=== PATIENT | female | born 1985 | race Caucasian/White ===

== ENCOUNTER 2017-04-21 10:45 | Emergency (ER) | payer OTHER ==
[~2017-04-21] VITALS: Ht 170.2 cm; Wt 100.0 kg
[2017-04-21 10:49] VITALS: BP 120/79; PULSE 78; RESP 16; O2SAT 100
--- NOTE | 2017-04-21 11:04 | ED.REPORT ---
HPI-Psychiatric Illness Date of Service Apr 21, 2017 ED Provider: Ricky Hendrix MD Patient is a 31 year old female with a history of Grave's disease and depression who presents to the ED sent from by psychiatrist with suicidal ideation with a plan onset three days ago. Her plan would be to overdose on medications, and her has currently locked all medications up. She denies that she would actually attempt suicide. She is currently taking abilify for her depression, and states that she hasn't felt right since taking it. Her last dose was 3 days ago, and has been intermittently taking it for a month. Patient has had suicidal ideations in the past, but never had a plan before. [place] him on [place]/25. She is willing to be hospitalized because she wants to get better. Per feeder worker power unit operator, patient states that she has had auditory and visual hallucinations. Nursing Notes Stated Complaint: MENTAL HEALTH EVAL Chief Complaint: Psychiatric Complaint Nursing Notes Reviewed: Yes Allergies: Coded Allergies: Sulfa (Sulfonamide Antibiotics) (Verified Allergy, Severe, 04/21/17) Scheduled Aripiprazole (Abilify) 10 Mg Tablet 10 MG PO DAILY Levothyroxine (Levothyroxine) 200 Mcg Tablet 200 MCG PO DAILY General Time Seen by MD: 10:58 Chief Complaint Suicidal ideation Hx Obtained From: Patient, Spouse Arrived By: Walk-in Onset Occurred: 3 days ago Recent Healthcare: Recent doctor visit Similar Sx Previous: Yes Risk-Psychiatric Illness Suicide Risk Stratification RF Statements: Risk factors reviewed Past Medical History Past Medical History Grave's disease Depression Possible bipolar or personality disorder Past Surgical History Thyroid surgery Reports: Smoking History Unknown if Ever Smoker Social History Alcohol Use: Denies alcohol use Drug Use: THC Other Social History: Good social support, Ambulatory Status Independent Review of Systems Psychiatric: Reports: Hallucinations, auditory, Hallucinations, visual, Suicidal ideation, Denies: Homicidal ideation Complete sys rev & neg: except as marked. Physical Exam Initial Vital Signs Vital Signs (First) Date Time Temp Pulse Resp B/P Pulse Ox O2 Delivery O2 Flow Rate FiO2 04/21/17 10:49 36.4 78 16 120/79 100 04/21/17 15:38 Room Air Initial VS: Reviewed Head / Eyes: Atraumatic, Normocephalic Abdomen / GI: Soft, Non-tender Extremities: Vascular intact, Neuro intact, No swelling, No tenderness Skin: Warm, Dry, No cyanosis General/Constitutional: Awake, Alert Neurologic: Oriented X3, Speech NL Psychiatric: Not homicidal Abnormal Thinking / Perception: Positive: Suicidal, with plan Respiratory / Chest: Atraumatic, Breath sounds NL, Breath sounds = bilat, No respiratory distress Cardiovascular: Heart rate NL, Regular rhythm, Heart sounds NL Abdomen: Soft, Non-tender Interpretation & Diagnostics Lab Results Interpretation Result Diagram: 04/21/17 1130 04/21/17 1130 Test 04/21/17 11:30 White Blood Count 5.9th/mm3 (3.8-10.1) Red Blood Count 4.26mil/mm3 (3.90-5.20) Hemoglobin 10.9g/dL (12.0-15.6) Hematocrit 33.9% (35.0-46.0) Mean Corpuscular Volume 79.6fL (81-100) Mean Corpuscular Hemoglobin 25.6pg (27.0-35.0) Mean Corpuscular Hemoglobin Concent 32.2% (32.0-37.0) Red Cell Distribution Width 14.8% (12.3-15.4) Platelet Count 230bil/L (150-400) Neutrophils (%) (Auto) 48.2% (40-74) Lymphocytes (%) (Auto) 36.1% (14-46) Monocytes (%) (Auto) 7.3% (4-12) Eosinophils (%) (Auto) 7.4% (0-5) Basophils (%) (Auto) 0.8% (0-3) Sodium Level 139mEq/L (134-144) Potassium Level 4.2mEq/L (3.5-5.2) Chloride Level 103mEq/L (97-108) Carbon Dioxide Level 27mmol/L (18-29) Blood Urea Nitrogen 10mg/dL (6-20) Creatinine 0.78mg/dL (0.57-1.00) Estimat Glomerular Filtration Rate 123mL/min (>59) Glucose Level 93mg/dL (60-99) Calcium Level 9.1mg/dL (8.5-10.1) Total Bilirubin 0.3mg/dL (0.0-1.2) Aspartate Amino Transf (AST/SGOT) 18U/L (0-50) Alanine Aminotransferase (ALT/SGPT) 17U/L (0-32) Alkaline Phosphatase 82U/L (25-150) Total Protein 7.1g/dL (6.4-8.4) Albumin 4.5g/dL (3.4-5.0) Thyroid Stimulating Hormone (TSH) 23.310uIU/mL (0.450-4.500) Hold Lowery Top Tube Received (Received) Re-Eval/Medical Decision Med Decision/Clinical Course 31-year-old female history of depression presenting with suicidal ideation with no intent. She has thoughts of killing herself with pills but these are locked up and she does not believe she will do this. She does have a history of hypothyroidism and is on levothyroxine. Here her TSH is elevated. She was evaluated by feeder worker power unit operator and there were no beds available for a voluntary psychiatric admission. This was discussed with the patient and she and her decided that they were safe to go home and did not want to wait for bed authorization. I spoke with the patient's physician who agreed with plan to discharge home with return precautions and plans to follow up with primary doctor tomorrow. We will increase her levothyroxine from 175 to 200 with follow-up primary doctor. Preauthorization form was sent by her feeder worker power unit operator for voluntary psychiatric admission. Return precautions given. Patient reports she is not intent to hurt herself and she does feel safe to be discharged home. agrees and agrees to keep the patient safe. Discharge & Departure Shift Change Sign-Out Patient Care Transferred: Yes Discussed Complaint(s): Yes Additonal Information: Transferred to Dr. Velasco at 1800 Impression: Primary Impression: Suicidal ideation Additional Impressions: Depression Depression Type: unspecified Qualified Code: F32.9 - Major depressive disorder, single episode, unspecified Hypothyroidism Discharge Condition All VS Reviewed: Yes Condition: Stable Additional Instructions: Your thyroid is low. I recommended increasing to 200 g daily and following up with her primary doctor. Review have opted to follow-up with the resources provided by the feeder worker power unit operator as an outpatient. You agreed that you do not have any plans of hurting yourself this time. Please return immediately if any thoughts of hurting yourself or others. Please follow-up with your psychiatrist and resources provided by the feeder worker power unit operator tomorrow. Referrals: BRITANY ALEXANDRE MD Care Transferred at: 18:00 Scribe Attestation Portions of this note were transcribed by Ida Andrew. I, Dr. Hendrix personally performed the history, physical exam and medical decision-making; I reviewed and confirmed the accuracy of the information in the transcribed note. copies to: BRITANY ALEXANDRE MD, Ben M MD Apr 21, 2017 11:04 Ida Andrew Apr 21, 2017 11:27
[2017-04-21 11:46] LABS: BASOPHILS % (AUTO) 0.8 % (0-3); EOSINOPHILS % (AUTO) 7.4 % (0-5); MONOCYTES % (AUTO) 7.3 % (4-12); Mean Corpuscular Hemoglobin 25.6 pg (27.0-35.0); Mean Corpuscular Volume 79.6 fL (81-100); NEUTROPHILS % (AUTO) 48.2 % (40-74); Platelet Count 230 bil/L (150-400)
[2017-04-21 15:38] VITALS: BP 118/8; PULSE 96; RESP 18; O2SAT 100
[2017-04-21] MEDS ORDERED: LEVO200T6 PO (18:51)
[2017-04-21 19:40] VITALS: PULSE 105; RESP 16; O2SAT 97
--- NOTE | 2017-04-21 20:10 | NUR ---
4pm 04/21/17 Mental Health Evaluation Izzy Dewey is a 31 yo female BIB spouse, Juan M, by car to [facility] after being seen and deferred by her PCP, Dr. Alexandre, at [place] for [facility]pt psychiatric services due to active suicidal ideation w/ plan to OD on her Rx. Per chart review and VOA pt has no MH Hx. Per pt has has had depression and self-harm Hx since she was a teen. Pt reports one inpt psych stay at [facility] in 2014 for depression and being overwhelmed. Pt endorses suicidal ideation w/ plan to OD on her Rx. MSE: Pt was assessed in exam room #B w/ spouse Juan M present. Pt was A&Ox4, logical, linear, engaged, endorsing SI w/ plan, denies HI, reports auditory and visual hallucinations i.e. seeing creatures that look like gremlins and I hear what sounds like two people talking on the radio, but they dont tell me to do anything. Pt was engaged, slightly unkempt, dysphoric, tearful, appeared forthright in her reporting, cooperative, and maintained eye contact. Pt reported that when she was a teen that she had thoughts of suicide, but never attempted it. Pt still has yet to attempt suicide, but has developed a plan to OD on her Rx. Pt reports being put on Abilify, but that is has not been working. No medications I have ever taken have helped. Pts spouse reports, She seems to have been worse since she started taken them. She has no gotten any better. Pt also reports she has difficulty sleeping because, sometimes I am afraid I am going to hurt my children. Pt clarified she has never planned to hurt her children, or hurt her children. Pt has been w/ her spouse Juan M for 6 years and they have twins Jesse & Rehan, both 5yo, who are in preschool at [employer] on the [place]. She also cares for a step-son named Tim 11yo who goes [employer]. 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 Pt reports worsening depression, persistent suicidal ideation w/ plan, has tried counseling, and has been taking Abilify, which she reports is not alleviating her current Sx and her spouse confirms that. Pt adds she feels hopeless, has been having hallucinations, and feels afraid she may harm her children, but denies any plans to harm them, or ever having harmed them. Dx: F33.3 Major Depressive D/O w/ psychotic features. Disposition: Two hours were spent attempting pre-auth w/ , which is managed by [facility], to no avail. No one was able to provide pre-auth for a voluntary stay. It can only be achieved by going to [email or web address] and downloading a provider form requesting pre-auth on behalf of pt. Once filled out it needs to be faxed to either [phone], or [phone]. It may be granted in eight hours, or as long as 72 hours. [facility] freelance court reporter also said that, you might have to call them to find out if pre-auth was granted, or you might a fax confirming it. [facility], which was where the pt was originally referred, reported they would hold the bed for tonight. Day staff were made aware of possible pre-auth and acceptance. Pt went home w/ spouse to monitor. Pt reported to staff she has no suicide attempts and feels safe enough to go home for now w/ hopes she may be accepted after pre-auth is attained. Healthcare team was consulted and in complete agreement w/ plan. JOZEF TranSW
[2017-04-22] MEDS ORDERED: ARIP10TA14 PO (17:12)
== END 2017-04-21 19:41 | disposition home or self-care (01) ==
LOC: SED 10:45
DX: F32.9 Major depressive disorder, single episode, unspecified (principal); E03.9 Hypothyroidism, unspecified; R45.851 Suicidal ideations; Z88.2 Allergy status to sulfonamides

== ENCOUNTER 2017-04-22 10:12 | Inpatient (IN) | payer OTHER ==
[~2017-04-22] VITALS: Ht 170.2 cm; Wt 98.0 kg
[~2017-04-22 10:12] MED LIST: LEVO200T6 PO
[2017-04-22 10:24] VITALS: BP 112/74; PULSE 98; RESP 16; O2SAT 99
--- NOTE | 2017-04-22 12:13 | ED.REPORT ---
HPI-Psychiatric Illness Date of Service Apr 22, 2017 ED Provider: Stevie Baldwin MD Patient is a 31 year old female with a hx of Graves disease, depression, and possible bipolar/personality disorder who presents to the ED complaining of suicidal ideation with a plan to OD on pills. Pt reports her depression has been this severe on and off for several months. Pt also reports auditory and visualize hallucinations. She was seen last night for the same symptoms and per spouse, she was actively searching for pills last night at home after being discharged. She denies homicidal ideation, fever, headache, nausea, vomiting, diarrhea, abdominal pain, recent injuries, or any other symptoms. Pt reports her abilify "hasn't been working" and she stopped taking it consistently because she felt it exacerbated her depression. She was prescribed it 2 months ago and per spouse, she has been "going downhill since." She has been taking it consistently for the past 2 weeks as instructed by her doctor and believes this is why she is so suicidal. Pt occasionally takes Paxil. She also takes a thyroid medication and her dose was increased last night. She took 1mg Ativan at 0700 this morning. Pt reports using marijuana but denies other drug or alcohol use. She had a psychiatric admission at [facility] 2 years ago. Nursing Notes Stated Complaint: MENTAL HEALTH Chief Complaint: Psychiatric Complaint Nursing Notes Reviewed: Yes Allergies: Coded Allergies: Sulfa (Sulfonamide Antibiotics) (Verified Allergy, Severe, 04/21/17) Scheduled Levothyroxine (Levothyroxine) 200 Mcg Tablet 200 MCG PO DAILY General Time Seen by MD: 12:04 Chief Complaint Suicidal ideation Hx Obtained From: Patient, Spouse Arrived By: Walk-in Onset Occurred: More than a week ago... Symptom Duration: Intermittent Severity: Current: No pain currently Severity: Maximum: No pain Immunizations: Unknown Recent Healthcare: Recent doctor visit Similar Sx Previous: Yes Risk-Psychiatric Illness Suicide Risk Stratification Suicide Risk Factors - Adult: : Prior psych admission: Substance abuseNo: Alcohol use, Previous attempt RF Statements: Risk factors reviewed Past Medical History Past Medical History Grave's disease Depression Possible bipolar or personality disorder Past Surgical History Thyroid surgery Reports: Smoking History Unknown if Ever Smoker Social History Alcohol Use: Denies alcohol use Drug Use: THC Other Social History: Good social support, Ambulatory Status Independent Review of Systems Review of Systems Note: -recent injuries Constitutional: Denies: Fever GI: Denies: Abdominal pain, Diarrhea, Nausea, Vomiting Neurologic: Denies: Headache Psychiatric: Reports: Depression, Hallucinations, auditory, Hallucinations, visual, Suicidal ideation, Denies: Homicidal ideation Complete sys rev & neg: except as marked. Physical Exam Initial Vital Signs Vital Signs (First) Date Time Temp Pulse Resp B/P Pulse Ox O2 Delivery O2 Flow Rate FiO2 04/22/17 10:24 36.3 98 16 112/74 99 Room Air Initial VS: Reviewed, Vital signs normal Head / Eyes: Atraumatic, Normocephalic Neck: Full range of motion Respiratory: Breath sounds normal, Clear to auscultation, No respiratory distress Cardiovascular: Regular rate & rhythm, Heart sounds normal, Intact distal pulses Abdomen / GI: Soft, Non-tender Skin: Warm, Dry General/Constitutional: Awake, Alert Neurologic: Oriented X3, Speech NL Psychiatric: Not homicidal Abnormal Mood/Affect: Positive: Depressed Abnormal Thinking / Perception: Positive: Suicidal, with plan Interpretation & Diagnostics Lab Results Interpretation Test 04/22/17 12:00 Hold Urine Received (Received) Lab Results Interpretation: Urine tox positive for TCA's and THC during visit last night. Breathalyzer negative Re-Eval/Medical Decision Consultation : Referral / Consult Name: Ernesto Garnica DO Consulted With: Psychiatry Venetian Blind Installer: Accepts admit Discharge & Departure Impression: Primary Impression: Depression Additional Impressions: Hypothyroidism Suicidal ideation Disposition: ADMITTED TO HOSPITAL Discharge Condition All VS Reviewed: Yes Condition: Stable Referrals: NOPCP (PCP) Scribe Attestation Portions of this note were transcribed by Terrell Orantes. I, Dr. Baldwin personally performed the history, physical exam and medical decision-making; I reviewed and confirmed the accuracy of the information in the transcribed note. Signed by: Miguelina Cardenas, 04/22/17 Stevie Baldwin MD Apr 22, 2017 12:13 TERRELL ORANTES Apr 22, 2017 12:24
[2017-04-22] MEDS ORDERED: LORazepam 2 mg Tablet PO ONE (12:40)
[2017-04-22] MEDS ORDERED: Alum-Mag Hydrox-Simeth 30 mL Suspension PO PRN (14:30)
[2017-04-22] MEDS ORDERED: Benzocaine-Menthol Lozenge 2/Pkg PO PRN (14:30)
[2017-04-22] MEDS ORDERED: Magnesium Hydroxide 10 mL Oral Concentration PO PRN (14:30)
[2017-04-22] MEDS ORDERED: ARIP10TA14 PO (17:12)
--- NOTE | 2017-04-22 18:06 | NUR ---
Admit, Obs Dayshift Pt is polite, anxious, nervous, appropriate, and cooperative with admit process. Pt states that she has had some SI, w/ plan. Pt states that this has happened before but not this bad. Scared of participating on the unit this evening but states that she will try more in the morning. Spent most of the evening in her room writing. Stated that she does like to read but when she is this anxious it is do difficult. Good ADL's, Good meals
--- NOTE | 2017-04-22 18:46 | NUR ---
Nurse Admit Note: Pt is a 31yo female voluntary admit with SI, just wanting to end it, and AH, VH. Pt reports anxiety /10 and depression /10, but denies HI or violence. Pt admitted to that she was seeing goblins that stare at her and hears radio type music and people talking, but looks around and cannot find any source of the noise. Pt was brought into the [facility] ED for admit to the [facility] [place] 04/21/17 and arrived on unit at 1430, completing orientation and paperwork. Pt was cooperative and calm during the admit process, stating she just wants help to cope and get rid of the hallucinations. Pt states stress brings them on and she has tried many medications and different therapeutic techniques to cope. Pt reports support from her mother and . Pt reports her only other hospitalization for a mental break was September 2015 and she was admitted to [facility] at that time. Pt has been on Abilify for the last couple of months with visits to her psychiatrist every 2 weeks. Pt had a thyroidectomy 2 years ago and is on Levothyroxine 200mg.
[2017-04-22] MEDS: LORazepam 1 mg Tablet PO PRN (19:30)
--- NOTE | 2017-04-23 01:34 | NUR ---
Observations 1900 to 0700 Pt did not eat a snack. Pt is pleasant and cooperative and spends free time on the phone or watching TV. Pt not observed interacting with peers. Pt maintained behavioral control and showed no signs of abnormal behavior. Pt appeared asleep at 2130 and has remained asleep. Pt respirations were observed when asleep. Staff completed 15 min close observations as ordered.
--- NOTE | 2017-04-23 06:31 | NUR ---
Nursing Note Compressor Service Technician 11pm-7am Patient in room asleep at start of shift. She was noted to be asleep at 2130 and through the rest of the night. Pt monitored q 15 minutes for safety, location and accountability.
[2017-04-23] MEDS ORDERED: ARIPiprazole 10 mg Tablet PO SCH (08:30)
[2017-04-23 10:00] VITALS: BP 108/76; PULSE 92; RESP 16
--- NOTE | 2017-04-23 15:28 | NUR ---
Nursing: Pt is confused and somewhat disorganized. When asked what got her in here, "I didn't pray enough. I wasn't sleeping at night. No erase that (and insisted I scratch it off my notes). Says she doesn't know where she is or how she got here. She denies any pain then stood abruptly and left the conversation. She has been intermittently out on the unit but not really social and sleeping in between.Denies SI or thought disturbance but at times appears to be attending to internal stimuli. Addendum: 04/23/17 at 1756 by TOSHIA VASQUEZ RN Disgard the above note: wrong pt
[2017-04-23] MEDS: LORazepam 1 mg Tablet PO PRN (15:55)
--- NOTE | 2017-04-23 16:45 | HP ---
[address] [address] HISTORY AND PHYSICAL PATIENT: JESSA KOTHARI : 1985 MR#: [id number] ADMIT: 04/22/2017 JOB ID: [id number] IDENTIFICATION OF PATIENT: The patient is a 31-year-old female who reportedly was admitted on a voluntary basis through the emergency department with evidence of increasing depression, anxiety. The patient reportedly has struggled with significant difficulties with recurrent panic attacks that occur two times per day, difficulties with increasing factors of depression including complaints of fleeting suicidal thoughts. CHIEF COMPLAINT: "I just couldn't handle it any more." This per patient report. HISTORY OF PRESENT ILLNESS: As stated above, the patient is a 31-year-old female who reportedly has been struggling with increasing factors of anxiety and also suicidal ideation with a plan of overdose. She reportedly was seen through the emergency department and unfortunately was sent back home due to lack of insurance authorization later which was reversed within 24 hours. The patient reported to the emergency department personnel that she was experiencing auditory and visual hallucinations of hearing voices and seeing dark characters. She reportedly states that she had been on combinations of medications prescribed by her psychiatrist, Dr. Hill at the [facility] since January of 2017. She indicates that she previously had been prescribed antidepressants including Paxil at 10 mg q.h.s. with beneficial response but indicated that she has two young children, a set of twins, ages four, and it essentially wipes her out. She indicated that in the past she has been tried on multiple antidepressants including Zoloft, Celexa, Wellbutrin, Paxil, nortriptyline, Imigran, desipramine, amitriptyline, previous prescriptions of Ativan, Klonopin, mood stabilizers including Seroquel, lithium, Lamictal, Trileptal, previous agents including clonidine, Tenex with limited response. The patient states that prior to her connections with Dr. Hill she had been seen by Dr. Grigsby in [place]. She reports that she resides in the home environment with her of six years, a set of twins ages four and a son at age 11. She reports that she has had one prior hospitalization at [facility] in 2014 due to significant factors of depression as well. In reviewing her current symptoms, she admits to complaints of anergia, anhedonia, delays of concentration, feelings of hopelessness, helplessness, worthlessness, episodes of mood swing variation, tearfulness and panic. She identified that she does not want to hurt herself knowing that she has her children and her to live for. In reviewing additional history, the patient denies any history of trauma. She does admit to periodic usage of marijuana edibles for sleep and anxiety 1-2 times per week. She admitted to no consistent usage of alcohol. PAST MEDICAL HISTORY: Is noted for allergies to SULFA. CURRENT MEDICATIONS: Include: Abilify 10 mg daily reported but DC as of Friday Synbthorid 200 mcg PAST PSYCHIATRIC HISTORY: Substantial for the above information. In addition, the patient is scheduled to be seen by Eugenie Gasca, a therapist. Actually had a scheduled visit for today but this was canceled. SOCIAL HISTORY: As noted above. The patient lives at home with her of six years. She has a set of twins ages four and an 11-year-old son from a previous relationship. She reports that she is currently unemployed. She did graduate from high school in the [employer] in a small private school of less than 20 students. She indicated that she did not attend college. Her is enlisted. FAMILY HISTORY: Is negative for mental illness. She indicated that there are several individuals that drink excessively but no one has received treatment. DEVELOPMENT HISTORY: Reportedly as above. MENTAL STATUS EXAMINATION: General appearance: The patient was cooperative, anxious, polite. She made intermittent eye contact. She indicated that she was glad that I had actually visited with her living in fear throughout the daytime hours that I was not actually going to meet with her. The patient's speech was of normal tone, frequency and volume. She made intermittent eye contact. Her mood was anxious with depressive features. Her affect was congruent. Her thought process showed no evidence of racing thoughts, flight of ideas, loose or disconnected thinking. Her thought content, she admitted to the above suicidal ideation with a plan of overdose. She denied any evidence of homicidal ideation. She denied any evidence of active hallucinations of current. She does identify hearing voices in the background, seeing dark shadows and gremlins. There is no evidence of paranoia. She was alert, oriented to time and place. Attention and concentration intact. Insight and judgment are fair. DIAGNOSTIC IMPRESSIONS: AXIS I 1. Major depressive disorder, recurrent type, nonpsychotic. 2. Generalized anxiety disorder. 3. Panic disorder without agoraphobia. 4. Social phobia. AXIS II Rule out cluster B personality features. AXIS III History of hypothyroidism with replacement. AXIS IV Stressors are noted for life transition, disturbance of coping. AXIS V Global assessment of functioning of current 30. PLANS: 1. Recommendations for initiation of Effexor 75 mg XR daily q.h.s. for three days, then increase to 150 mg thereafter. 2. Recommendations for continuation of supportive interventions including possible access of DBT, EMDR to follow. 3. Continuation of Synthroid 200 mcg daily. 4. Discontinuation of Abilify as previously noted. MTDD
--- NOTE | 2017-04-23 17:25 | NUR ---
Assistant Import Manager/Counselor: S/O: Patient slept 8.5 hours last night as per staff. She denies S/I and H/I. She also denies auditory and visual hallucinations.She reported anxiety as a high and depression as high. She reported she is struggling with the stress and worry for how her family is doing while she is hospitalized. A: Patient is cooperative, anxious, fair insight, fair judgment. P: Follow care plan, coordinate out-patient providers.
--- NOTE | 2017-04-23 18:01 | NUR ---
nursing(Disregard previous entry: wrong Pt) this pt refused am [employer]il[employer] :"That's why I'm in here. I started it about 2 months ago but began spiraling down and was suicidal. I'd never felt that way before. I talked to my dr and my and decided to come in because I knew I was in trouble..." Pt has been intermittently tearful and anxious having to wait all day to see a doctor.: "I just want to figure out what's wrong and get on the right meds and get back home . I have 4 yo twins and an 11 yo who need me..." 1819: Is much relieved after talking with the MD and calmdmitri. REviewed the new medication with her and pt asking appropriate questions. Is able to join her peers watching a movie.
--- NOTE | 2017-04-23 19:58 | NUR ---
Observations 00 - 0 Pt affect and mood isolative, guarded, depressed and withdrawn. Pt was in her room and laying in bed most of the shift. Pt was pleasant, friendly, polite and cooperative when approached. Pt attended meals in D.R. and ate about 50% of meals. Pt did some coloring in group room. Pt stated that it was depressing that she didn't get to see the doctor yet. Pt was observed every 15 minutes through the shift as ordered.
[2017-04-23] MEDS ORDERED: Venlafaxine XR 75 mg ER24 Capsule PO SCH (21:00)
--- NOTE | 2017-04-24 05:45 | NUR ---
Nursing Note [employer] Services Professional 9pm-7pm Patient in room asleep at start of shift. She was noted to be asleep at 2215 and through the rest of the night. Pt monitored q 15 minutes for safety, location and accountability.
[2017-04-24] MEDS ORDERED: VENL75CA PO (12:49)
--- NOTE | 2017-04-24 12:49 | PCM.DIMED ---
Discharge Instructions Date of Service Apr 24, 2017 Dates of Hospitalization Apr 22, 2017 at 14:15 Discharge Diagnosis Discharge Diagnosis MDD Recurrent nonpsychotic PTSD chhronic Generalized Anxiety DO Panic DO without agoraphobia Borderline Personality DO Diet Discharge Diet: No restrictions Activity Discharge Activity: No restrictions DanikaJacquese Mina DO Apr 24, 2017 12:49
--- NOTE | 2017-04-24 14:26 | DIS ---
[address] [address] DISCHARGE SUMMARY PATIENT: JESSA KOTHARI : 1985 MR#: [id number] ADMIT: 04/22/2017 JOB ID: [id number] DIS: 04/24/2017 ADMITTING DIAGNOSES: AXIS I 1. Major depressive disorder, recurrent type, nonpsychotic. 2. Generalized anxiety disorder. 3. Panic disorder without agoraphobia. 4. Social phobia. AXIS II Rule out cluster B personality features. AXIS III History of hypothyroidism with replacement. AXIS IV Stressors are noted for life transition, disturbance of coping. AXIS V Global assessment of functioning of current 30. DISCHARGE DIAGNOSES: AXIS I 1. Major depressive disorder, recurrent type, nonpsychotic. 2. Generalized anxiety disorder. 3. Panic disorder without agoraphobia. 4. Social phobia. AXIS II Borderline personality disorder. AXIS III History of hypothyroidism with replacement. AXIS IV Stressors are noted for life transition, disturbance of coping. AXIS V Global assessment of functioning of current 40. REASON FOR ADMISSION: The patient was a 31-year-old female admitted on a voluntary basis with evidence of increasing depression, anxiety and noted previous history of panic disorder. During the course of hospitalization, the patient's history was reviewed with previous multiple trials of antidepressants, mood stabilizers, atypical antipsychotics and limited response. During the course of hospitalization, the patient's history was significant for factors of depression, anxiety, both of panic and generalized variant, and also previous identification of PTSD features. It was felt that the patient would benefit from a trial of Effexor which was instituted at 75 mg q.h.s. and showed significant improvement of status. During the course of hospitalization, the patient participated in both individual and group therapy components with gains of insight into alternative coping. She was encouraged to consider continuation of individual therapy with possible access of DBT curriculum. CONDITION ON THE TIME OF DISCHARGE: The patient was cooperative, polite. She identified that she would be willing to consider a possible discharge over the weekend but later retracted indicating that she preferred to leave on the day of discharge. She showed no evidence of imminent danger. Her speech was of normal tone, frequency and volume. Her mood was neutral. Affect was congruent. She denied any evidence of current suicidal or homicidal ideation. No evidence of active hallucinations, delusions. She was alert, oriented to time and place. Attention and concentration intact. Insight and judgment were fair. PLAN: 1. Recommendations to followup with Dr. Hill, general psychiatrist, at the [facility]. 2. Followup with individual therapist, Eugenie Gasca, for initiation of individual therapy, possible access of DBT curriculum based on her previous history. 3. Continuation of Effexor 75 mg XR q.h.s., one month supply, no refills given. Reason for usage: Treatment of anxiety and depression. 4. Continuation of her previous doses of Synthroid 200 mcg daily with follow up care through her PCP. No prescription was given. MTDD
--- NOTE | 2017-04-24 15:00 | NUR ---
NURSE DISCHARGE NOTE Patient cooperative with discharge process. Acknowledges understanding of d/c instructions and has a copy with them upon leaving unit at 1500. Belongings accounted for and with patient. Prescriptions faxed to patients home pharmacy. Patient denies harmful thoughts and hallucinations at this time.
--- NOTE | 2017-04-24 18:35 | NUR ---
[employer] Adjuster/Counselor: S/O: Patient slept 7.25 hours last night as per staff. She denies S/I and H/I. She also denies auditory and visual hallucinations. Depression and anxiety were not rated. Out-patient appointments: Dr. Virgilio Hill, medication monitor, 04/25/17 at 10:20am and Eugenie Gasca, counselor, 04/25/17 at 1:00pm. A: Patient is cooperative, hopeful, good insight, good judgment. P: Follow care plan, coordinate out-patient providers.
== END 2017-04-24 15:00 | disposition home or self-care (01) | DRG 885 ==
LOC: SED 10:12 → MHC 14:15
PROVIDERS: ADMIT Psychiatry & Neurology Psychiatry; ATTEND Psychiatry & Neurology Psychiatry
DX: F33.2 Major depressive disorder, recurrent severe without psychotic features (principal); R45.851 Suicidal ideations; F41.1 Generalized anxiety disorder; F41.0 Panic disorder [episodic paroxysmal anxiety]; F60.3 Borderline personality disorder